=== PATIENT | female | born 1970 | race Caucasian/White ===

== ENCOUNTER 2017-09-22 17:47 | Emergency (ER) | payer MEDICARE ==
[~2017-09-22] VITALS: Ht 165.1 cm; Wt 104.3 kg
[~2017-09-22 17:47] MED LIST: ACETAMINOPHEN-1 EAC1 PO; DEPAKOTE250 MG PO; HYDRALAZINE 5050 MG PO; HYDROXYZINE HCL25 M1 PO; LAMICTAL100 MG PO; LANTUS100 UNIT/M SUBQ; LISINOPRIL5 MG PO; NEURONTIN 300300 M1 PO; NOVOLOG100 UNIT/1 SUBQ; PROZAC10 MG PO; ROBAXIN 750 MG750 M1 PO; XANAX 0.5 MG0.5 MG PO
[2017-09-22 18:37] LABS: ABSOLUTE BASOPHILS 0.1 thou/uL (0.0-0.2); ABSOLUTE EOSINOPHILS 0.2 thou/uL (0.0-0.7); ABSOLUTE LYMPHOCYTES 2.9 thou/uL (0.8-5.3); ABSOLUTE MONOCYTES 0.8 thou/uL (0.0-1.2); ABSOLUTE NEUTROPHILS 7.1 thou/uL (1.6-8.1); BASOPHILS 1.1 %; EOSINOPHILS 1.9 %; HEMOGLOBIN 13.2 gm/dL (12.0-15.0); MCH 27.1 pg (26.0-34.0); MCHC 33.9 g/dL (28.0-37.0); MCV 79.9 fL (80.0-100.0); MONOCYTES 6.9 %; MPV 8.3 fl. (7.2-11.1); NUCLEATED RBCS 0 /100WBC; PLATELET COUNT* 418 thou/uL (150-400); POLYS 64.1 %; RBC 4.87 mil/uL (4.20-5.00); RDW-CV 14.2 % (10.5-14.5); WBC 11.1 thou/uL (4.0-11.0)
[2017-09-22 18:41] LABS: CALCIUM 9.4 mg/dL (8.5-10.1); CREATININE 0.8 mg/dL (0.6-1.3)
[2017-09-22 18:46] LABS: ALBUMIN 3.5 g/dL (3.4-5.0); TOTAL BILIRUBIN 0.3 mg/dL (<0.1-1.0); TOTAL PROTEIN 8.5 g/dL (6.4-8.2)
[2017-09-22] MEDS ORDERED: TRAMADOL 50 MG50 MG PO (18:57)
[2017-09-22] MEDS ORDERED: NAPROSYN500 MG PO (18:57)
[2017-09-22 19:06] VITALS: BP 133/69
== END 2017-09-22 19:07 | disposition home or self-care (01) ==
LOC: M.ERS 17:47
PROVIDERS: Physician Assistant
DX: E11.65 Type 2 diabetes mellitus with hyperglycemia (principal); M25.50 Pain in unspecified joint; F31.9 Bipolar disorder, unspecified; I10 Essential (primary) hypertension; Z79.4 Long term (current) use of insulin